=== PATIENT | female | born 2000 | race Caucasian/White ===

== ENCOUNTER 2022-12-18 20:48 | Emergency (ER) | payer BC ==
[2022-12-18] MEDS ORDERED: KETOROLAC 15 MG/ML 1 ML VIAL IM STA (21:07)
--- NOTE | 2022-12-18 21:20 | ED ---
Female Urogenital HPI - General Source: patient Mode of arrival: ambulatory Limitations: no limitations <Ayan Pelaez - Last Filed: 12/18/22 21:19> - General Source: RN notes reviewed <Hyun Rodriguez - Last Filed: 12/19/22 02:23> - General Chief complaint: Urogenital Stated complaint: ABD Pain Time Seen by Provider: 12/18/22 21:19 - History of Present Illness Initial comments: 22-year-old female with history of ovarian cysts presenting with chief complaint of pelvic pain. Severe and sharp pain started around 45 minutes prior to arrival. No vaginal bleeding. Denies chance of . (Ayan Pelaez) 22-year-old female with a past medical history significant for PCOS presents the emergency department with a chief complaint pelvic pain. She reports sudden onset severe centralized pelvic pain that started approximately 8 PM. She denies any fevers, vaginal bleeding, vaginal discharge, dysuria, hematuria, increased urinary frequency, flank pain, nausea, vomiting, dizziness. She reports last menstrual period. LMP 12/02/2022. She is not concerned for any STDs. (Hyun Rodriguez) - Related Data Allergies Allergy/AdvReac Type Severity Reaction Status Date / Time morphine Allergy Unknown Verified 12/18/22 20:58 Review of Systems ROS Other: All systems not noted in ROS Statement are negative. <Ayan Pelaez - Last Filed: 12/18/22 21:19> ROS Other: All systems not noted in ROS Statement are negative. <Hyun Rodriguez - Last Filed: 12/19/22 02:23> ROS Statement: Those systems with pertinent positive or pertinent negative responses have been documented in the HPI. Past Medical History Additional Past Medical History / Comment(s): ovarian cysts. 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 1/2 gone Past Psychological History: No Psychological Hx Reported Smoking Status: Never smoker Past Alcohol Use History: Rare Past Drug Use History: None Reported <Ayan Pelaez - Last Filed: 12/18/22 21:19> General Exam Limitations: no limitations General appearance: alert, in distress (in pain) Head exam: Present: atraumatic, normocephalic, normal inspection Eye exam: Present: normal appearance Respiratory exam: Absent: respiratory distress Neurological exam: Present: alert, oriented X3 <Ayan Pelaez - Last Filed: 12/18/22 21:19> <Hyun Rodriguez - Last Filed: 12/19/22 02:23> - General Exam Comments Initial Comments: General: Alert, in no acute distress Head: atraumatic normocephalic. Eyes PERRL, EOMI intact, mucous membranes moist Respiratory: Lungs clear to auscultation bilaterally Cardiovascular: Heart rate regular rate and rhythm Abdominal: Soft without guarding or rebound Extremities: Normal inspection with full range of motion and normal capillary refill Neuroogic: alert and oriented 3, CN II-XII intact, able to ambulate with steady gait Skin: warm dry and intact with normal color : external exam is without any rashes, lesions, erythema. Vaginal canal without discharge.. Cervical os is visualized and is closed. There is no cervical motion tenderness or adnexal tenderness . Pelvic exam performed with Mariah huffman RN present. (Hyun Rodriguez) Course <Hyun Rodriguez - Last Filed: 12/19/22 02:23> Vital Signs 12/18/22 12/19/22 20:54 00:46 Temperature 98.4 F 97.6 F Pulse Rate 93 76 Respiratory 20 18 Rate Blood Pressure 120/72 122/78 O2 Sat by Pulse 97 98 Oximetry - Reevaluation(s) Reevaluation #1: 12/19/22 00:21 Reevaluated and updated on results. She is agreeable with the plan for discharge home. (Hyun Rodriguez) Medical Decision Making - Lab Data Result diagrams: 12/18/22 22:46 12/18/22 23:43 <Hyun Rodriguez - Last Filed: 12/19/22 02:23> - Medical Decision Making Was pt. sent in by a medical professional or institution ([facility], [facility], urgent care, hospital, or longterm...) When possible be specific @ -[No] Did you speak to anyone other than the patient for history (EMS, parent, family, police, friend...)? What history was obtained from this source @ -[No] Did you review nursing and triage notes (agree or disagree)? Why? @ -[I reviewed and agree with nursing and triage notes] Were old charts reviewed (outside hosp., previous admission, EMS record, old EKG, old radiological studies, urgent care reports/EKG's, longterm records)? Report findings @ -[No old charts were reviewed] Differential Diagnosis (chest pain, altered mental status, abdominal pain women, abdominal pain men, vaginal bleeding, weakness, fever, dyspnea, syncope, headache, dizziness, GI bleed, back pain, seizure, CVA, palpatations, mental health, musculoskeletal)? @ -[not applicable] EKG interpreted by me (3pts min.). @ -[As above] X-rays interpreted by me (1pt min.). @ -[None done] CT interpreted by me (1pt min.). @ -[None done] U/S interpreted by me (1pt. min.). @ -Yes What testing was considered but not performed or refused? (CT, X-rays, U/S, labs)? Why? @ -[None] What meds were considered but not given or refused? Why? @ -[None] Did you discuss the management of the patient with other professionals ( professionals i.e. DrHelio, PA, [facility], lab, RT, psych nurse, social secretary, client service consultant, teacher, conservation science officer, telephonic nurse case manager)? Give summary @ -[No] Was smoking cessation discussed for >3mins.? @ -[No] Was critical care preformed (if so, how long)? @ -[No] Were there social determinants of health that impacted care today? How? (Homelessness, low income, unemployed, alcoholism, drug addiction, t ransportation, low edu. Level, literacy, decrease access to med. care, [facility], rehab)? @ -[No] Was there de-escalation of care discussed even if they declined (Discuss DNR or withdrawal of care, Hospice)? DNR status @ -[No] What co-morbidities impacted this encounter? (DM, HTN, Smoking, COPD, CAD, Cancer, CVA, ARF, Chemo, Hep., AIDS, mental health diagnosis, sleep apnea, morbid obesity)? @ -[None] Was patient admitted / discharged? Hospital course, mention meds given and route, prescriptions, significant lab abnormalities, going to OR and other pertinent info. @ -Discharge. Supposedly 22-year-old female who presents the emergency department with pelvic pain. Patient had a thorough history and physical exam performed on the ED. Heart rate regular rate and rhythm, lungs clear to auscultation Abdomen soft. exam unremarkable cervical os is vis ualized and closed. No marked adnexal tenderness. Patient had labratory studies performed which were unremarkable. Urine culture pending. Pelvic US reveals multiple follicles in the right ovary. Left ovary with 2 cysts, largest 5x4x3 cm. I discussed the results in detail with the patient. All questions were addressed. Patient provided with list of local [facility]'s to follow up with. PAtient discharged in stable condition. Return precautions were discussed. Case discussed with SASHA Jaramillo who agrees with POC Undiagnosed new problem with uncertain prognosis? @ -[No] Drug Therapy requiring intensive monitoring for toxicity (Heparin, Nitro, Insulin, Cardizem)? @ -[No] Were any procedures done? @ -[No] Diagnosis/symptom? @ -Pelvic Pain - Ovarian cyst Acute, or Chronic, or Acute on Chronic? @ -Acute Uncomplicated (without systemic symptoms) or Complicated (systemic symptoms)? @ -Uncomplictaed Side effects of treatment? @ -[No] Exacerbation, Progression, or Severe Exacerbation? @ -[No] Poses a threat to life or bodily function? How? (Chest pain, [place], [place], pneumonia, PE, COPD, DKA, ARF, appy, cholecystitis, CVA, Diverticulitis, Homicidal, Suicidal, threat to staff... and all critical care pts) @ -Low likelihood (Hyun Rodriguez) - Lab Data Lab Results 12/18/22 12/18/22 12/18/22 Range/Units 22:28 22:28 22:46 WBC 10.7 H (3.8-10.6) k/uL RBC 4.91 (3.80-5.40) m/uL Hgb 13.8 (11.4-16.0) gm/dL Hct 41.3 (34.0-46.0) % MCV 84.1 (80.0-100.0) fL MCH 28.1 (25.0-35.0) pg MCHC 33.4 (31.0-37.0) g/dL RDW 13.1 (11.5-15.5) % Plt Count 247 (150-450) k/uL MPV 9.3 Neutrophils % 63 % Lymphocytes % 29 % Monocytes % 5 % Eosinophils % 2 % Basophils % 0 % Neutrophils # 6.8 (1.3-7.7) k/uL Lymphocytes # 3.1 (1.0-4.8) k/uL Monocytes # 0.5 (0-1.0) k/uL Eosinophils # 0.2 (0-0.7) k/uL Basophils # 0.0 (0-0.2) k/uL Sodium Potassium Chloride Carbon Dioxide Anion Gap BUN Creatinine Est GFR (CKD-EPI)AfAm (>60 ml/min/1.73 sqM) Est GFR (CKD-EPI)NonAf (>60 ml/min/1.73 sqM) Glucose Calcium Total Bilirubin AST ALT Alkaline Phosphatase Total Protein Albumin Urine Color Colorless Urine Appearance Cloudy H (Clear) Urine pH 6.0 (5.0-8.0) Ur Specific [place] 1.011 (1.001-1.035) Urine Protein Negative (Negative) Urine Glucose (UA) Negative (Negative) Urine Ketones Negative (Negative) Urine Blood Negative (Negative) Urine Nitrite Negative (Negative) Urine Bilirubin Negative (Negative) Urine Urobilinogen <2.0 (<2.0) mg/dL Ur Leukocyte Esterase Small H (Negative) Urine RBC 3 (0-5) /hpf Urine WBC 3 (0-5) /hpf Ur Squamous Epith Cells 9 H (0-4) /hpf Urine Mucus Rare H (None) /hpf Urine HCG, Qual Not Detected (Not Detectd) 12/18/22 12/18/22 Range/Units 22:46 23:43 WBC (3.8-10.6) k/uL RBC (3.80-5.40) m/uL Hgb (11.4-16.0) gm/dL Hct (34.0-46.0) % MCV (80.0-100.0) fL MCH (25.0-35.0) pg MCHC (31.0-37.0) g/dL RDW (11.5-15.5) % Plt Count (150-450) k/uL MPV Neutrophils % % Lymphocytes % % Monocytes % % Eosinophils % % Basophils % % Neutrophils # (1.3-7.7) k/uL Lymphocytes # (1.0-4.8) k/uL Monocytes # (0-1.0) k/uL Eosinophils # (0-0.7) k/uL Basophils # (0-0.2) k/uL Sodium Not Reportable 135 L Potassium Not Reportable 3.8 Chloride [facility] 108 H Carbon Dioxide Not Reportable 22 Anion Gap Not Reportable 5 BUN Not Reportable 12 Creatinine Not Reportable 0.56 Est GFR (CKD-EPI)AfAm >90 (>60 ml/min/1.73 sqM) Est GFR (CKD-EPI)NonAf >90 (>60 ml/min/1.73 sqM) Glucose Not Reportable 91 Calcium Not Reportable 8.3 L Total Bilirubin Not Reportable 0.3 AST Not Reportable 26 ALT Not Reportable 19 Alkaline Phosphatase Not Reportable 64 Total Protein Not Reportable 5.7 L Albumin Not Reportable 3.1 L Urine Color Urine Appearance (Clear) Urine pH (5.0-8.0) Ur Specific [place] (1.001-1.035) Urine Protein (Negative) Urine Glucose (UA) (Negative) Urine Ketones (Negative) Urine Blood (Negative) Urine Nitrite (Negative) Urine Bilirubin (Negative) Urine Urobilinogen (<2.0) mg/dL Ur Leukocyte Esterase (Negative) Urine RBC (0-5) /hpf Urine WBC (0-5) /hpf Ur Squamous Epith Cells (0-4) /hpf Urine Mucus (None) /hpf Urine HCG, Qual (Not Detectd) Disposition <Ayan Pelaez - Last Filed: 12/18/22 21:19> Is patient prescribed a controlled substance at d/c from ED?: No Time of Disposition: 00:18 <Hyun Rodriguez - Last Filed: 12/19/22 02:23> Clinical Impression: Pelvic pain, Ovarian cyst Disposition: HOME SELF-CARE Condition: Stable Instructions (If sedation given, give patient instructions): Ovarian Cyst (ED), Ruptured Ovarian Cyst (ED) Additional Instructions: Please monitor symptoms closely Please establish care with primary [facility] Please return to the nearest emergency department if sudden unilateral abdominal pain, vaginal discharge, high fever develops Referrals: None,Stated [Primary Care Provider] - 1-2 days Kalli Arias MD [STAFF PHYSICIAN] - 1-2 days Sandi Lee DO [Doctor of Osteopathic Medicine] - 1-2 days Sagrario Mares DO [Doctor of Osteopathic Medicine] - 1-2 days
--- NOTE | 2022-12-18 22:03 | US ---
EXAMINATION TYPE: US transvaginal DATE OF EXAM: 12/18/2022 COMPARISON: NONE CLINICAL INDICATION: Female, 22 years old with history of pelvic pain; Pelvic pain and bloating x 1 h our. Hx of PCOS. G0. Irregular periods that last 2 weeks. TECHNIQUE: Transvaginal (TV). Date of LMP: Around 11/26/22 EXAM MEASUREMENTS: Uterus: 6.1 x 4.2 x 4.5 cm Endometrial Stripe: 1.1 cm Right Ovary: 3.9 x 3.6 x 2.9 cm Left Ovary: 6.4 x 5.5 x 4.1 cm 1. Uterus: Anteverted Not well visualized due to tilted uterus 2. Endometrium: wnl 3. Right Ovary: Multiple follicles seen. Largest = 2.1 x 2.0 x 1.6cm. 4. Left Ovary: 2 Large cystic areas seen. Largest is complex measuring 5.1 x 4.6 x 3.2cm Spectral, color and waveform doppler imaging shows good arterial and venous flow within the ovaries ; there is no evidence for ovarian torsion. 5. Bilateral Adnexa: FF seen in rt adnexa adjacent to rt ovary 6. Posterior cul-de-sac: wnl Free fluid seen in right adnexa adjacent to rt ovary. There is good flow in right ovary. IMPRESSION: 1. Large left ovarian cyst. Follow-up is recommended. 2. Additional cysts within the right ovary. 3. Moderate free fluid in the right adnexa
[2022-12-18] MEDS ORDERED: SODIUM CHLORIDE 0.9% 1,000 ML IV ONE (22:57)
[2022-12-18 23:19] LABS: Appearance,Urine Cloudy (Clear); Bilirubin,Urine Negative (Negative); Blood,Urine Negative (Negative); Color,Urine Colorless; Glucose,Urine (UA) Negative (Negative); Ketones,Urine Negative (Negative); Leukocyte Esterase,Urine Small (Negative); Mucus,Urine Rare /hpf; Nitrite,Urine Negative (Negative); Protein,Urine Negative (Negative); RBC,Urine 3 /hpf (0-5); Specific Gravity,Urine 1.011 (1.001-1.035); Squamous Epithelial Cell,Urine 9 /hpf (0-4); Urobilinogen,Urine <2.0 mg/dL (<2.0); WBC,Urine 3 /hpf (0-5)
[2022-12-18 23:48] LABS: Basophils % (A) 0 %; Eosinophils # (A) 0.2 k/uL (0-0.7); Eosinophils % (A) 2 %; HCT 41.3 % (34.0-46.0); HGB 13.8 gm/dL (11.4-16.0); Lymphocytes # (A) 3.1 k/uL (1.0-4.8); Lymphocytes % (A) 29 %; MCH 28.1 pg (25.0-35.0); MCHC 33.4 g/dL (31.0-37.0); MCV 84.1 fL (80.0-100.0); Mean Platelet Volume 9.3; Monocytes # (A) 0.5 k/uL (0-1.0); Monocytes % (A) 5 %; Neutrophils # (A) 6.8 k/uL (1.3-7.7); Neutrophils % (A) 63 %; Platelet Count 247 k/uL (150-450); RBC 4.91 m/uL (3.80-5.40); RDW 13.1 % (11.5-15.5); WBC 10.7 k/uL (3.8-10.6)
[2022-12-19 00:08] LABS: ALT 19 U/L (4-34); AST 26 U/L (14-36); African American GFR (CKD) >90 (>60 ml/min/1.73 sqM); Albumin 3.1 g/dL (3.5-5.0); Alkaline Phosphatase 64 U/L (38-126); Anion Gap 5 mmol/L; Blood Urea Nitrogen 12 mg/dL (7-17); Calcium 8.3 mg/dL (8.4-10.2); Carbon Dioxide 22 mmol/L (22-30); Chloride 108 mmol/L (98-107); Glucose 91 mg/dL (74-99); Non-African American GFR(CKD) >90 (>60 ml/min/1.73 sqM); Potassium 3.8 mmol/L (3.5-5.1); Sodium 135 mmol/L (137-145); Total Bilirubin 0.3 mg/dL (0.2-1.3); Total Protein 5.7 g/dL (6.3-8.2)
[2022-12-19 00:50] VITALS: BP 122/78; PULSE 76; RESP 18; TEMP 97.6
== END 2022-12-19 00:48 | disposition home or self-care (01) ==
LOC: EC 20:48
DX: N83.202 Unspecified ovarian cyst, left side (principal); N83.201 Unspecified ovarian cyst, right side; Z88.5 Allergy status to narcotic agent
CPT/HCPCS: 99284; 96360; 96372; 36415; 80053; 85025; 81001; 81025; 87086; 93975; 76830; J1885